=== PATIENT | female | born 1985 | race Caucasian/White ===

== ENCOUNTER 2023-05-21 20:16 | Emergency (ER) | payer OTHER, SELFPAY ==
--- NOTE | ~2023-05-21 | XR_ITS ---
EXAMINATION: XR chest 1V portable Exam Date/Time: 05/21/2023 20:55 CDT HISTORY: palpitations Comparison: None. RESULT: Lines, tubes, and devices: None. Lungs and pleura: Clear. Cardiomediastinal silhouette: Normal. Other: No acute osseous or upper abdominal finding. IMPRESSION: No acute cardiopulmonary process. Reviewed, dictated and finalized at location K.
--- NOTE | 2023-05-21 20:17 | ECG_ITS ---
Measurements Intervals Elsie Rate: 88 P: 36 ND: 124 QRS: 51 QRSD: 81 T: 41 QT: 350 QTc: 424 Interpretive Statements SINUS RHYTHM BORDERLINE ST ABNORMALITY- ANTEROLAT/INF LEADS BASELINE ARTIFACT- V5-V6 BORDERLINE ECG NO PREVIOUS ECG AVAILABLE FOR COMPARISON Electronically Signed On 05-22-2023 7:27:19 CDT by Federico Storm D.O.
[2023-05-21 20:27] VITALS: BP 144/87; PULSE 79; RESP 14; TEMP 36.9; O2SAT 100
--- NOTE | 2023-05-21 20:56 | ED.GENADULT ---
HPI - General Adult General Chief complaint: Arrhythmia/Palpitations Stated complaint: heart racing/palpitations Time Seen by Provider: 05/21/23 20:40 Source: patient Mode of arrival: ambulatory Limitations: no limitations History of Present Illness HPI narrative: This is a 38-year-old female who presents to the ED with chief complaint of palpitations for the past 2 to 3 days. She states that has been a problem for over a year and comes on intermittently. She states as I am talking to her it has resolved, however she wanted to get it checked out tonight. States she has never been seen for this in the past. States she does drink a lot of caffeinated beverages including coffee and energy drinks. She reports that she does not go to a primary care doctor. Denies any chest pain, shortness of breath, cough. She does endorse intermittent lightheadedness but is not feeling that right now. Denies fevers, chills, leg swelling, abdominal pain, nausea, vomiting. Exam Narrative: GENERAL: Well-appearing, well-nourished, and in no acute distress. HEAD: Normocephalic, atraumatic. EYES: PERRLA and EOMI. ENT: Nares clear, no rhinorrhea or epistaxis. Mucous membranes moist. Oropharynx without tonsillar hypertrophy exudate or other lesions. NECK: Supple. No adenopathy or masses. CHEST: No respiratory distress. Clear to auscultation. No wheezes rales or rhonchi HEART: Regular rate and rhythm. No murmur heard. Normal peripheral pulses. ABDOMEN: Soft, nontender, nondistended, normal active bowel sounds. MSK: Normal range of motion. No edema. SKIN: Warm, dry, no rash. NEURO: Alert and oriented x3. No focal deficits. PSYCH: Normal mood and affect. Course Vital Signs Vital signs: Vital Signs Temperature 98.4 F 05/21/23 20:27 Pulse Rate 79 05/21/23 20:27 Respiratory Rate 14 05/21/23 20:27 Blood Pressure 144/87 H 05/21/23 20:27 Pulse Oximetry 100 05/21/23 20:27 Oxygen Delivery Room Air 05/21/23 20:27 Temperature 98.4 F 05/21/23 20:27 Pulse Rate 78 05/21/23 21:19 Respiratory Rate 14 07/08/23 20:27 Blood Pressure 144/87 H 05/21/23 20:27 Pulse Oximetry 100 05/21/23 20:27 Oxygen Delivery Room Air 05/21/23 20:27 Medical Decision Making MDM Narrative Medical decision making narrative: This is a 38-year-old female who presents to the ED with chief complaint of palpitations onset for over a year and worse in the past couple of days. Vitals are normal. EKG shows sinus rhythm. Chest x-ray negative. Laboratory work-up is also negative. PERC rule negative. Symptoms consistent with been palpitations. We discussed that she will need primary care follow-up for this. Return precautions were given and supportive measures were discussed. She drinks a lot of coffee and energy drinks, we discussed slowing down on these as that may be contributing. She remained stable for discharge. Patient is understanding and agreeable with the plan for discharge and follow-up with the PCP on this. Vital Signs Vital Signs: Vital Signs Temperature 98.4 F 05/21/23 20:27 Pulse Rate 79 05/21/23 20:27 Respiratory Rate 14 05/21/23 20:27 Blood Pressure 144/87 H 05/21/23 20:27 Pulse Oximetry 100 05/21/23 20:27 Oxygen Delivery Room Air 05/21/23 20:27 Temperature 98.4 F 05/21/23 20:27 Pulse Rate 78 05/21/23 21:19 Respiratory Rate 14 05/21/23 20:27 Blood Pressure 144/87 H 05/21/23 20:27 Pulse Oximetry 100 05/21/23 20:27 Oxygen Delivery Room Air 05/21/23 20:27 ECG Data EKG #1: ECG completion date: 05/21/23 ECG completion time: 20:22 Prior ECG tracings: not available for review Interpretation: Sinus rhythm Rate 88 Normal TX Normal QRS No acute ischemic findings Discharge Plan Discharge Clinical Impression: Palpitations Patient Disposition: Home, Self-Care Condition: Stable Instructions: Antibiotic Form Additional Instructions: Your e
[2023-05-21 21:19] VITALS: PULSE 78
[2023-05-21 21:41] LABS: Basophils Absolute Auto 0.1 K/mm3 (0.0-0.1); Basophils Percent Auto 0.7 % (0.2-1.2); Eosinophils Absolute Auto 0.1 K/mm3 (0-0.3); Eosinophils Percent Auto 0.7 % (0-4.4); Hematocrit 37.3 % (37.0-47.0); Hemoglobin 12.2 g/dL (12.0-15.0); Immature Granulocyte Absolute 0.01 K/mm3 (0.00-0.031); Immature Granulocyte Percent A 0.1 % (0-0.5); Lymphocytes Percent Auto 24.7 % (18.3-44.2); Mean Corpuscular HGB Conc 32.7 g/dl (32-36); Mean Corpuscular Hemoglobin 30.6 pg (26-34); Mean Corpuscular Volume 93.5 fl (80-100); Monocytes Absolute Auto 0.6 K/mm3 (0.1-0.6); Monocytes Percent Auto 8.2 % (2.6-8.5); Neutrophils Absolute Auto 4.5 K/mm3 (1.3-6.7); Neutrophils Percent Auto 65.6 % (45.5-73.1); Platelet Count Result 162 k/mm3 (150-375); Red Blood Count 3.99 M/mm3 (4.2-5.4); Red Cell Distribution Width 13.1 % (11.5-14.5); White Blood Count 6.9 K/mm3 (4.5-10.0)
[2023-05-21 22:07] LABS: Alanine Aminotransferase 15 U/L (6-35); Albumin Level 4.2 g/dL (3.5-5.1); Alkaline Phosphatase 40 U/L (38-126); Anion Gap 2 mmol/L (8-16); Aspartate Amino Transferase 29 U/L (14-36); Bilirubin,Total 0.6 mg/dL (0.2-1.3); Blood Urea Nitrogen 7 mg/dL (7-17); Carbon Dioxide 28 mmol/L (22-30); Chloride 104 mmol/L (98-107); Estimated CRCL calculation 113 ml/min; Estimated Glomerular Filt Rate > 60; Glucose 95 mg/dL (65-110); Potassium 3.7 mmol/L (3.4-5.0); Sodium 134 mmol/L (137-145)
--- NOTE | 2023-05-21 22:24 | PC.NURSE ---
This RN called Mercedes in lab to see if the results were back for the Trop 1 test per EDP CONRAD Mcfadden.
[2023-05-21 22:28] LABS: Troponin I < 0.012 ng/mL (0.000-0.034)
[2023-05-21 22:45] VITALS: BP 122/98; PULSE 73; RESP 23; O2SAT 100
== END 2023-05-21 22:47 | disposition home or self-care (01) ==
PROVIDERS: Emergency Provider Physician Assistant
DX: R00.2 Palpitations (principal)
CPT/HCPCS: 36415; 71045; 80053; 84484; 85025; 93005; 99284